=== PATIENT | male | born 1960 | race Caucasian/White ===

== ENCOUNTER → 2024-03-16 | Outpatient (CLI) | payer BC | END | disposition home or self-care (01) | LOC: MRI 10:40 | PROVIDERS: ATTEND Neurological Surgery | DX: M54.51 Vertebrogenic low back pain (principal) | CPT/HCPCS: 72148 ==

== ENCOUNTER → 2024-06-16 | Outpatient (CLI) | payer BC | END | disposition home or self-care (01) | LOC: MRI 10:27 | PROVIDERS: ATTEND Neurological Surgery | DX: M48.062 Spinal stenosis, lumbar region with neurogenic claudication (principal); M47.816 Spondylosis without myelopathy or radiculopathy, lumbar region; M51.369 Other intervertebral disc degeneration, lumbar region without mention of lumbar back pain or lower extremity pain | CPT/HCPCS: 72148 ==

== ENCOUNTER 2024-07-19 05:42 | Inpatient (IN) | payer BC ==
[~2024-07-19] VITALS: Ht 172.7 cm; Wt 145.1 kg
[2024-07-19] VITALS (50 sets, daily range): BP systolic 68–148; BP diastolic 39–101; PULSE 58–97; RESP 12–25; TEMP 36.8–37.1; O2SAT 89–100
[~2024-07-19 05:42] MED LIST: ALBU18HF2 IH; ASPI-1406 PO; CLON0.1T PO; DOXA8TAB2 PO; LOSA-415 PO; MAXIDE PO; POTA-203 PO; PROT40 PO; SEMA2PEN SQ; SIMV-43 PO
[2024-07-19] MEDS ORDERED: SODIUM CHLORIDE 0.9% 1,000 ML IV SCH (06:15)
[2024-07-19] MEDS ORDERED: ROCURONIUM BROMIDE 10MG/ML VIAL 5ML IV ONE ×2 (07:01→08:22)
[2024-07-19] MEDS ORDERED: ONDANSETRON HCL 4MG/2ML INJ ONE (07:01)
[2024-07-19] MEDS ORDERED: DEXAMETHASONE 4MG/ML 1ML VIAL ONE (07:01)
[2024-07-19] MEDS ORDERED: FENTANYL CITRATE/PF 50MCG/ML 2ML VIAL ONE (07:02)
[2024-07-19] MEDS ORDERED: PROPOFOL 200MG/20ML VIAL IV ONE (07:02)
[2024-07-19] MEDS ORDERED: MIDAZOLAM HCL 2 MG/2 ML VIAL ONE (07:02)
[2024-07-19] MEDS ORDERED: HYDROMORPHONE HCL/PF 2MG/ML INJ ONE (07:31)
[2024-07-19] MEDS ORDERED: AMLO10TA80 PO (07:39)
[2024-07-19] MEDS ORDERED: HYDROMORPHONE HCL/PF 1MG/ML INJ ONE (08:08)
[2024-07-19] MEDS ORDERED: PHENYLEPHRINE HCL 10MG/ML 1ML IV ONE ×2 (08:09→08:28)
[2024-07-19] MEDS ORDERED: THROMBIN (BOVINE) 5000 UNITS/VIAL TOP ONE (09:39)
[2024-07-19 10:02] LABS: HEMATOCRIT 35.7 % (42.0-52.0); HEMOGLOBIN 12.1 g/dL (14.0-18.0)
[2024-07-19] MEDS ORDERED: SUGAMMADEX SODIUM 200MG/2ML VIAL IV ONE (10:23)
[2024-07-19] MEDS: NOREPINEPHRINE 8MG/250ML PMX 250 ML IV PRN (11:35)
[2024-07-19] MEDS ORDERED: NICARDIPINE 100 MG in SODIUM CHLORIDE 0.9% 60 ML IV PRN (13:00)
[2024-07-19] MEDS: DEXT 5%/LACTATED RINGERS 1,000 ML IV SCH (13:26)
[2024-07-19] MEDS ORDERED: IPRATROPIUM/ALBUTEROL 0.5-3(2.5)MG/3ML NEB HHN PRN (14:00)
[2024-07-19] MEDS ORDERED: CEFAZOLIN SODIUM 1000MG/VIAL IV SCH (14:00)
[2024-07-19] MEDS: MORPHINE SULFATE 4 MG/ML INJ (FOR IV/IM USE) IV PRN (14:19)
[2024-07-19] MEDS: PANTOPRAZOLE SODIUM 40 MG/VIAL IV SCH (15:59)
[2024-07-19] MEDS: CEFAZOLIN 1000MG PREMIX 50 ML IV SCH (15:59)
[2024-07-19] MEDS ORDERED: ACETAMINOPHEN 325MG TABLET PO PRN (16:30)
[2024-07-19] MEDS ORDERED: NALOXONE HCL 0.4MG/ML VIAL IV PRN (16:30)
[2024-07-19] MEDS ORDERED: GUAIFENESIN 200MG/10ML SUGAR FREE UDC PO PRN (16:30)
[2024-07-19] MEDS ORDERED: CLONIDINE 0.1MG TABLET PO PRN (16:30)
[2024-07-19] MEDS ORDERED: DEXTROSE 50% WATER 50ML SYRINGE IV PRN (16:45)
[2024-07-19] MEDS ORDERED: PNEUMOCOCCAL 20-VAL CONJ-DIP CRM 0.5ML IM ONE (18:00)
[2024-07-19] MEDS: INSULIN LISPRO 100 UNITS/ML SUBCUT SCH (18:44)
[2024-07-19] MEDS: HYDROCODONE/ACETAMINOPHEN 10/325MG TABLET PO PRN (19:38)
[2024-07-19] MEDS: BLOOD SUGAR DIAGNOSTIC STRIP TEST SCH (20:22)
[2024-07-19 23:58] LABS: HEMATOCRIT 34.7 % (42.0-52.0); MEAN CORPUSCULAR HEMOGLOBIN 31.8 pg (28.0-32.0); MEAN CORPUSCULAR HGB CONC 34.5 g/dL (31.0-37.0); PLATELET 183 x1000/uL (130-400); RED BLOOD CELL COUNT 3.77 mill/uL (4.7-6.1); WHITE BLOOD COUNT 10.5 x1000/uL (4.5-11.0)
[2024-07-20] VITALS (69 sets, daily range): BP systolic 77–160; BP diastolic 37–115; PULSE 82–112; RESP 14–30; TEMP 36.4–36.9; O2SAT 91–99
[2024-07-20 00:20] LABS: POTASSIUM 3.8 mEq/L (3.5-5.1)
[2024-07-20 00:21] LABS: CALCIUM 8.6 mg/dL (8.7-10.4)
[2024-07-20 04:29] LABS: HEPATITIS C AB NON REACTIVE (Neg) (Negative)
[2024-07-20 05:06] LABS: HEMATOCRIT. 32.8 % (42.0-52.0); HEMOGLOBIN. 11.3 g/dL (14.0-18.0); MEAN CORPUSCULAR HEMOGLOBIN 31.6 pg (28.0-32.0); MEAN CORPUSCULAR HGB CONC 34.4 g/dL (31.0-37.0); MEAN CORPUSCULAR VOLUME 92.1 fL (80.0-94.0); MEAN PLATELET VOLUME 7.6 fl (7.4-10.4); PLATELET 173 x1000/uL (130-400); RED BLOOD CELL COUNT 3.56 mill/uL (4.7-6.1); RED CELL DISTRIBUTION WIDTH 13.9 % (11.6-14.6); WHITE BLOOD COUNT 12.1 x1000/uL (4.5-11.0)
[2024-07-20 05:13] LABS: DIFFERENTIAL COMMENT 1
[2024-07-20 05:14] LABS: HEPATITIS B SURFACE ANTIGEN NEGATIVE (Negative)
[2024-07-20 05:19] LABS: POTASSIUM 3.8 mEq/L (3.5-5.1)
[2024-07-20 05:20] LABS: CALCIUM 8.6 mg/dL (8.7-10.4)
[2024-07-20] MEDS: LOSARTAN 25 MG TABLET PO SCH (08:18)
[2024-07-20 17:08] LABS: PLATELET ESTIMATE NORMAL
[2024-07-20] MEDS: CYCLOBENZAPRINE 10MG TABLET PO SCH (21:42)
[2024-07-21] VITALS: BP 106/63; PULSE 98; RESP 18; TEMP 36.4; O2SAT 100
[2024-07-21 04:00] VITALS: BP 101/68; PULSE 98; RESP 20; TEMP 36.2; O2SAT 99
[2024-07-21 07:57] VITALS: BP 122/69; PULSE 97; RESP 18; TEMP 36.7; O2SAT 97
[2024-07-21 08:22] LABS: BASOPHILS % 0.3 % (0.0-2.0); EOSINOPHILS % 0.7 % (0.0-5.0); HEMATOCRIT. 30.3 % (42.0-52.0); HEMOGLOBIN. 10.2 g/dL (14.0-18.0); LYMPHOCYTES % 10.7 % (20.0-50.0); MEAN CORPUSCULAR HEMOGLOBIN 31.3 pg (28.0-32.0); MEAN CORPUSCULAR HGB CONC 33.8 g/dL (31.0-37.0); MEAN CORPUSCULAR VOLUME 92.7 fL (80.0-94.0); MEAN PLATELET VOLUME 7.9 fl (7.4-10.4); MONOCYTES % 10.5 % (2.0-8.0); NEUTROPHILS % 77.8 % (40.0-76.0); PLATELET 145 x1000/uL (130-400); RED BLOOD CELL COUNT 3.26 mill/uL (4.7-6.1); RED CELL DISTRIBUTION WIDTH 14.2 % (11.6-14.6); WHITE BLOOD COUNT 7.9 x1000/uL (4.5-11.0)
[2024-07-21 08:29] LABS: POTASSIUM 3.9 mEq/L (3.5-5.1)
[2024-07-21 08:30] LABS: CALCIUM 8.5 mg/dL (8.7-10.4)
[2024-07-21 08:35] LABS: CREATININE 1.8 mg/dL (0.6-1.3)
[2024-07-21 12:00] VITALS: BP 100/71; PULSE 117; RESP 19; TEMP 36.6; O2SAT 97
[2024-07-21 15:54] VITALS: BP 103/73; PULSE 108; RESP 20; TEMP 36.8; O2SAT 93
[2024-07-21 20:00] VITALS: BP 106/63; PULSE 110; RESP 20; TEMP 37.4; O2SAT 96
[2024-07-22] VITALS: BP 107/67; PULSE 90; RESP 20; TEMP 37.1; O2SAT 96
[2024-07-22 04:00] VITALS: BP 113/63; PULSE 99; RESP 20; TEMP 36.6; O2SAT 96
[2024-07-22 06:03] LABS: CALCIUM 8.2 mg/dL (8.7-10.4); POTASSIUM 3.2 mEq/L (3.5-5.1)
[2024-07-22 06:08] LABS: CREATININE 1.6 mg/dL (0.6-1.3)
[2024-07-22 08:00] VITALS: BP 105/63; PULSE 81; RESP 20; TEMP 37; O2SAT 97
[2024-07-22 08:19] LABS: BASOPHILS % 0.4 % (0.0-2.0); EOSINOPHILS % 1.2 % (0.0-5.0); HEMATOCRIT. 30.8 % (42.0-52.0); HEMOGLOBIN. 10.3 g/dL (14.0-18.0); LYMPHOCYTES % 10.1 % (20.0-50.0); MEAN CORPUSCULAR HEMOGLOBIN 31.4 pg (28.0-32.0); MEAN CORPUSCULAR HGB CONC 33.4 g/dL (31.0-37.0); MEAN CORPUSCULAR VOLUME 94.2 fL (80.0-94.0); MEAN PLATELET VOLUME 8.3 fl (7.4-10.4); MONOCYTES % 10.8 % (2.0-8.0); NEUTROPHILS % 77.5 % (40.0-76.0); PLATELET 147 x1000/uL (130-400); RED BLOOD CELL COUNT 3.28 mill/uL (4.7-6.1); RED CELL DISTRIBUTION WIDTH 14.1 % (11.6-14.6); WHITE BLOOD COUNT 7.3 x1000/uL (4.5-11.0)
[2024-07-22] MEDS ORDERED: MAGNESIUM 2 G PREMIX 50 ML IV ONE (11:45)
[2024-07-22 12:00] VITALS: BP 110/78; PULSE 79; RESP 18; TEMP 36.1; O2SAT 98
[2024-07-22] MEDS: DOCUSATE SODIUM 100MG CAPSULE PO PRN (12:00)
[2024-07-22] MEDS: POTASSIUM CHLORIDE 20MEQ TABLET SR PO NR (13:23)
[2024-07-22 16:00] VITALS: BP 113/87; PULSE 94; RESP 18; TEMP 36.3; O2SAT 96
[2024-07-22 20:00] VITALS: BP 115/70; PULSE 97; RESP 18; TEMP 36.2; O2SAT 97
[2024-07-23] VITALS (7 sets, daily range): BP systolic 96–134; BP diastolic 61–73; PULSE 90–107; RESP 16–20; TEMP 36.3–36.7; O2SAT 95–100
[2024-07-24] VITALS: BP 111/81; PULSE 105; RESP 18; TEMP 37.1; O2SAT 97
[2024-07-24 04:00] VITALS: BP 98/62; PULSE 85; RESP 16; TEMP 36.4; O2SAT 95
[2024-07-24 08:00] VITALS: BP 120/75; PULSE 108; RESP 20; TEMP 36.6; O2SAT 99
[2024-07-24 10:30] VITALS: BP 120/75; PULSE 108; TEMP 97.9; O2SAT 99
[2024-07-24 12:00] VITALS: BP 113/79; PULSE 95; RESP 18; TEMP 36.7; O2SAT 97
== END 2024-07-24 14:00 | disposition home health service (06) | DRG 515 ==
LOC: OR 05:42 → MICUNO 11:28 → 7WST 07-20 17:54
PROVIDERS: ADMIT Internal Medicine; ATTEND Internal Medicine
PROC: 01NB0ZZ Release Lumbar Nerve, Open Approach (ICD-10-PCS; principal; 2024-07-19)
DX: M48.061 Spinal stenosis, lumbar region without neurogenic claudication (principal); J96.01 Acute respiratory failure with hypoxia; D62 Acute posthemorrhagic anemia; G82.20 Paraplegia, unspecified; Z68.42 Body mass index [BMI] 45.0-49.9, adult; E66.9 Obesity, unspecified; G47.33 Obstructive sleep apnea (adult) (pediatric); E11.9 Type 2 diabetes mellitus without complications; I10 Essential (primary) hypertension; D72.829 Elevated white blood cell count, unspecified; E78.00 Pure hypercholesterolemia, unspecified; Z79.899 Other long term (current) drug therapy
CPT/HCPCS: 36415; 72100; 76000; 80048; 80061; 82962; 83036; 83735; 85014; 85018; 85025; 85027; 86705; 86850; 86900; 87340; 88304; 88311; 94070; 94660; 94664; 95925; 95926; 95928; 95929; 97116; 97162; 97530; 97535; 98960; A4606; A4663; J0690; J1100; J1171; J1815; J2250; J2270; J2405; J2470; J2704; J3010; J3490; J7121

== ENCOUNTER → 2025-03-02 | Outpatient (CLI) | payer BC ==
[~2025-03-02] MED LIST changes: +AMLO10TA80 PO
== END | disposition home or self-care (01) ==
LOC: RAD 10:58
PROVIDERS: ATTEND Neurological Surgery
DX: S33.110A Subluxation of L1/L2 lumbar vertebra, initial encounter (principal); M47.817 Spondylosis without myelopathy or radiculopathy, lumbosacral region; M48.07 Spinal stenosis, lumbosacral region; M41.86 Other forms of scoliosis, lumbar region; Z98.890 Other specified postprocedural states; X58.XXXA Exposure to other specified factors, initial encounter; Y93.89 Activity, other specified; Y92.89 Other specified places as the place of occurrence of the external cause; Y99.8 Other external cause status
CPT/HCPCS: 72114

== ENCOUNTER → 2025-04-03 | Outpatient (CLI) | payer BC | END | disposition home or self-care (01) | LOC: MRI 10:36 | PROVIDERS: ATTEND Neurological Surgery | DX: M47.817 Spondylosis without myelopathy or radiculopathy, lumbosacral region (principal); M51.370 Other intervertebral disc degeneration, lumbosacral region with discogenic back pain only; M48.07 Spinal stenosis, lumbosacral region; M51.26 Other intervertebral disc displacement, lumbar region; M47.814 Spondylosis without myelopathy or radiculopathy, thoracic region; M51.34 Other intervertebral disc degeneration, thoracic region; M48.04 Spinal stenosis, thoracic region; Z98.890 Other specified postprocedural states | CPT/HCPCS: 72148 ==

== ENCOUNTER → 2025-05-08 | Outpatient (CLI) | payer BC | END | disposition home or self-care (01) | LOC: CT 10:26 | PROVIDERS: ATTEND Neurological Surgery | DX: M51.370 Other intervertebral disc degeneration, lumbosacral region with discogenic back pain only (principal); M48.061 Spinal stenosis, lumbar region without neurogenic claudication; M54.9 Dorsalgia, unspecified | CPT/HCPCS: 72131 ==

== ENCOUNTER → 2025-05-29 | Outpatient (CLI) | payer BC | END | disposition home or self-care (01) | LOC: MRI 09:11 | PROVIDERS: ATTEND Student in an Organized Health Care Education/Training Program | DX: M47.813 Spondylosis without myelopathy or radiculopathy, cervicothoracic region (principal); M50.33 Other cervical disc degeneration, cervicothoracic region; M48.03 Spinal stenosis, cervicothoracic region; M48.02 Spinal stenosis, cervical region; M54.6 Pain in thoracic spine | CPT/HCPCS: 72141; 72146 ==